=== PATIENT | female | born 1970 | race Caucasian/White ===

== ENCOUNTER 2017-07-31 13:07 | Emergency (ER) | payer OTHER ==
[~2017-07-31] VITALS: Ht 157.5 cm; Wt 77.3 kg
[2017-07-31] MEDS ORDERED: NAPROXEN500 MG PO (15:53)
[2017-07-31 16:09] VITALS: BP 183/89
== END 2017-07-31 16:09 | disposition left against medical advice (07) ==
LOC: EME 13:07
DX: M79.605 Pain in left leg (principal); E03.9 Hypothyroidism, unspecified; F32.9 Major depressive disorder, single episode, unspecified; Z98.84 Bariatric surgery status
CPT/HCPCS: 99281; 99284; J1885